=== PATIENT | male | born 1950 | race Caucasian/White ===

== ENCOUNTER 2019-02-19 13:54 | Inpatient (IN) | payer BC ==
[~2019-02-19] VITALS: Ht 182.9 cm; Wt 108.0 kg
--- NOTE | 2019-02-19 14:02 | Emergency Room Report ---
History of Present Illness General Source: Patient, EMS Present Illness HPI Patient presents via EMS after having an episode of dizziness where he felt that he was about to pass out. The weakness was associated with L sided abdominal pain 5/10, constant, aching. He claims he has had some increased weakness in his legs. Yesterday he was walking his dog and fell. He was unable to get up because of leg weakness. People helped him to get up and then EMS went to assess him. He refused transport to hospital yesterday. He states he has chronic swelling of his right knee that is worsened recently. Also he has swelling in his legs with edema and venous disease there. He denies chest pain, palpitations, fevers, chills, nausea, vomiting, diarrhea. When he was weak he felt more weakness on the left side of his body. He denies having unilateral weakness at this time. He self catheterize for urine. Last catheterization was yesterday. He feels fulness in his bladder. He is followed by urologist. He said 4 operations for urethral strictures. This began after passing a large stone. He denies dysuria. There is no hematuria. When he passes the catheter he feels like he has to break up further strictures. He is not taking any Flomax. He denies previous cardiac problems or arrhythmias. 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 Reviewed Nursing Documentation: PMH: Agreed; PSxH: Agreed Review of Systems All Other Systems: negative except mentioned in HPI Physical Exam Vital Signs Date Time Temp Pulse Resp B/P (MAP) Pulse Ox O2 Delivery O2 Flow Rate FiO2 02/19/19 13:57 98.2 100 18 160/80 (106) 97 Room Air Sp02 EP Interpretation: reviewed, normal General Appearance: well appearing, GCS 15, non-toxic Head: normocephalic, atraumatic Eyes: bilateral eye normal inspection, bilateral eye PERRL, bilateral eye EOMI ENT: moist mucus membranes Neck: supple Respiratory: lungs clear, normal breath sounds Cardiovascular #1: tachycardia, extra beats, edema Cardiovascular #2: 2+ radial (R) Gastrointestinal: normal inspection, normal bowel sounds, no mass, non- distended, no guarding, no rebound, tenderness - Left mid abdomen Genitourinary: no CVA tenderness Musculoskeletal: no calf tenderness, Javier's Sign negative, swelling - Right knee, other - Bunion deformity bilaterally Neurologic: alert, oriented x3, fulfillment representative III-XII nml as tested, motor strength/tone normal, DTRs symmetric, sensory intact, cerebellar normal, normal gait, grossly normal Psychiatric: mood/affect normal Skin: warm/dry, other - Venous disease lower extremities Medical Decision Making Diagnostic Impression: Primary Impression: Near syncope Additional Impressions: Weakness Urinary retention Frequent PVCs Left sided abdominal pain Arrhythmia Qualified Codes: I49.8 - Other specified cardiac arrhythmias ER Course Patient presents with near syncope with episode of weakness yesterday. Differential includes acute myocardial infarction, arrhythmia, electrolyte abnormality, DVT right leg, occult infection, stroke, pulmonary embolus amongst others. Patient will be evaluated with EKG, chest x-ray and labs. Orthostatics will be performed. The etiology of the left-sided abdominal pain is unclear. Differential includes renal stone, pyelonephritis, constipation, diverticulitis amongst others. The patient declines Tylenol for treatment of this pain at this time. Abdominal exam is nonsurgical. EKG with NSR and frequent PVCs. Chest x-ray unremarkable with normal heart size. Labs with normal white count however possible left shift. CMP with mild hypo-kalemia. Sedimentation rate elevated. Negative troponin. Urinalysis post attempts at catheterization with mild hematuria. No evidence of UTI. Attempt pass langley - unable. Call Dr. Castano. States unable to come in at this time but will consult. Patient able to urinate. Still with tachycardia but less PVCs. Admit telemetry Dr. Bowens. Evaluated in the emergency department by production service manager. Patient given Tylenol for the left-sided abdominal pain. Etiology unclear. Laboratory Tests Test 02/19/19 14:45 02/19/19 17:20 White Blood Count 9.1 K/UL (4.8-10.8) Red Blood Count 4.25 M/UL (4.70-6.10) L Hemoglobin 14.8 G/DL (14.2-18.0) Hematocrit 41.5 % (42.0-52.0) L Mean Corpuscular Volume 98 FL (80-99) Mean Corpuscular Hemoglobin 34.9 PG (27.0-31.0) H Mean Corpuscular Hemoglobin Concent 35.7 G/DL (32.0-36.0) Red Cell Distribution Width 11.7 % (11.6-14.8) Platelet Count 115 K/UL (150-450) L Mean Platelet Volume 6.3 FL (6.5-10.1) L Neutrophils (%) (Auto) 84.2 % (45.0-75.0) H Lymphocytes (%) (Auto) 9.9 % (20.0-45.0) L Monocytes (%) (Auto) 5.0 % (1.0-10.0) Eosinophils (%) (Auto) 0.2 % (0.0-3.0) Basophils (%) (Auto) 0.7 % (0.0-2.0) Erythrocyte Sedimentation Rate 33 MM/HR (0-20) H Prothrombin Time 10.5 SEC (9.30-11.50) Prothrombin Time INR 1.0 (0.9-1.1) PTT 24 SEC (23-33) Sodium Level 143 MMOL/L (136-145) Potassium Level 3.2 MMOL/L (3.5-5.1) L Chloride Level 103 MMOL/L (98-107) Carbon Dioxide Level 22 MMOL/L (21-32) Anion Gap 18 mmol/L (5-15) H Blood Urea Nitrogen 16 mg/dL (7-18) Creatinine 1.0 MG/DL (0.55-1.30) Estimate Glomerular Filtration Rate > 60 mL/min (>60) Glucose Level 104 MG/DL (74-106) Uric Acid 4.5 MG/DL (2.6-7.2) Calcium Level 9.2 MG/DL (8.5-10.1) Total Bilirubin 1.2 MG/DL (0.2-1.0) H Direct Bilirubin 0.3 MG/DL (0.0-0.3) Aspartate Amino Transferase (AST) 43 U/L (15-37) H Alanine Aminotransferase (ALT) 37 U/L (12-78) Alkaline Phosphatase 63 U/L (46-116) Total Creatine Kinase 665 U/L (26-308) H Troponin I 0.000 ng/mL (0.000-0.056) Pro-B-Type Natriuretic Peptide 129 pg/mL (0-125) H Total Protein 7.6 G/DL (6.4-8.2) Albumin 4.2 G/DL (3.4-5.0) Globulin 3.4 g/dL Albumin/Globulin Ratio 1.2 (1.0-2.7) Urine Color Yellow Urine Appearance Clear Urine pH 5 (4.5-8.0) Urine Specific [place] 1.020 (1.005-1.035) Urine Protein 1+ (NEGATIVE) H Urine Glucose (UA) Negative (NEGATIVE) Urine Ketones 2+ (NEGATIVE) H Urine Blood 5+ (NEGATIVE) H Urine Nitrite Negative (NEGATIVE) Urine Bilirubin Negative (NEGATIVE) Urine Urobilinogen Normal MG/DL (0.0-1.0) Urine Leukocyte Esterase Negative (NEGATIVE) Urine RBC 60-80 /HPF (0 - 0) H Urine WBC 0-2 /HPF (0 - 0) Urine Squamous Epithelial Cells None /LPF (NONE/OCC) Urine Bacteria Occasional /HPF (NONE) EKG Diagnostic Results Rate: normal Rhythm: NSR ST Segments: no acute changes - frequent PVCs with couplets Rhythm Strip Diag. Results EP Interpretation: yes Rhythm: NSR, other - PVCs rate 105 Chest X-Ray Diagnostic Results Chest X-Ray Diagnostic Results : Chest X-Ray Ordered: Yes # of Views/Limited/Complete: 1 View Indication: Other EP Interpretation: Yes Interpretation: no consolidation, no effusion, no pneumothorax Impression: No acute disease Electronically Signed by: Electronically signed by Royal Eason MD Last Vital Signs Date Time Temp Pulse Resp B/P (MAP) Pulse Ox O2 Delivery O2 Flow Rate FiO2 02/20/19 00:00 98.8 96 18 153/85 (107) 95 02/19/19 20:30 Room Air Status: improved Disposition: ADMITTED INPATIENT Condition: Serious Royal Eason MD Feb 19, 2019 14:02
[2019-02-19 14:07] VITALS: BP 156/73
--- NOTE | 2019-02-19 14:07 | NUR ---
ED Nurse Note: PT FROM HOME CAME IN DUE TO WEAKNESS AND DIZINESS THAT STARTED YESTERDAY WITH NEAR SYNCOPE EPISODE. DENIES HEAD INJURY. ALSO C/O LEFT FLANK PAIN. NOTED SWELLING OF FEET AND HX OF GOUT. PT IS AAO X4, AMBULATORY WITH NON LABORED BREATHING.
--- NOTE | 2019-02-19 15:09 | Diagnostic Imaging Report ---
EXAM: XR Chest, 1 View CLINICAL HISTORY: SYNCOPE TECHNIQUE: Frontal view of the chest. COMPARISON: No relevant prior studies available. FINDINGS: Lungs: Slightly limited due to underpenetrated technique. No consolidation. Pleural space: Unremarkable. No pneumothorax. Heart: Unremarkable. No cardiomegaly. Mediastinum: Unremarkable. Bones/joints: Unremarkable. IMPRESSION: No evidence of acute pulmonary disease
[2019-02-19 15:10] LABS: BASOPHILS % (AUTO) 0.7 % (0.0-2.0); EOSINOPHILS % (AUTO) 0.2 % (0.0-3.0); HEMATOCRIT 41.5 % (42.0-52.0); HEMOGLOBIN 14.8 G/DL (14.2-18.0); LYMPHOCYTES % (AUTO) 9.9 % (20.0-45.0); MEAN CORPUSCULAR VOLUME 98 FL (80-99); NEUTROPHILS % (AUTO) 84.2 % (45.0-75.0); PLATELET COUNT 115 K/UL (150-450); RED BLOOD COUNT 4.25 M/UL (4.70-6.10); RED CELL DISTRIBUTION WIDTH 11.7 % (11.6-14.8); WHITE BLOOD COUNT 9.1 K/UL (4.8-10.8)
--- NOTE | 2019-02-19 15:30 | NUR ---
ED Nurse Note: 2 RNS TRIED TO INSERT A REYES CATHETER. UNABLE TO INSERT AND WITH RESISTANCE. DR ELLSWORTH STILL WANTS A REYES CATH INSERTED.
[2019-02-19 15:48] LABS: ANION GAP 18 mmol/L (5-15); BLOOD UREA NITROGEN 16 mg/dL (7-18); CALCIUM 9.2 MG/DL (8.5-10.1); CARBON DIOXIDE 22 MMOL/L (21-32); CHLORIDE 103 MMOL/L (98-107); POTASSIUM 3.2 MMOL/L (3.5-5.1); SODIUM 143 MMOL/L (136-145)
[2019-02-19 15:59] LABS: ALANINE AMINOTRANSFERASE 37 U/L (12-78); ALBUMIN 4.2 G/DL (3.4-5.0); ALBUMIN/GLOBULIN RATIO 1.2 (1.0-2.7); ALKALINE PHOSPHATASE 63 U/L (46-116); ASPARTATE AMINO TRANSFERASE 43 U/L (15-37); BILIRUBIN,TOTAL 1.2 MG/DL (0.2-1.0); CREATINE KINASE 665 U/L (26-308)
[2019-02-19 16:00] LABS: BILIRUBIN,DIRECT 0.3 MG/DL (0.0-0.3)
[2019-02-19] MEDS ORDERED: Lidocaine HCl 2% Jelly 6ml Tube TOPIC ONE ×2 (16:00→16:30)
[2019-02-19 16:10] VITALS: BP 157/87
[2019-02-19 18:00] VITALS: BP 146/83
[2019-02-19 18:26] LABS: APPEARANCE,URINE CLEAR; BILIRUBIN, URINE NEGATIVE (NEGATIVE); GLUCOSE, URINE (UA) NEGATIVE (NEGATIVE); KETONES,URINE 2+ (NEGATIVE); LEUKOCYTE ESTERASE ,URINE NEGATIVE (NEGATIVE); NITRITE,URINE NEGATIVE (NEGATIVE); PH,URINE 5 (4.5-8.0); PROTEIN,URINE 1+ (NEGATIVE); UROBILINOGEN,URINE NORMAL MG/DL (0.0-1.0)
[2019-02-19 18:27] LABS: COLOR,URINE YELLOW
--- NOTE | 2019-02-19 19:14 | NUR ---
HAND-OFF: Report given to GOGO CHAUHAN.
--- NOTE | 2019-02-19 19:15 | NUR ---
ED Nurse Note: Patient relaxing with no complaints. patient on phone with family members, speaking without difficulty. vital signs stable.
--- NOTE | 2019-02-19 20:01 | NUR ---
ED Nurse Note: Report called in to Hao CHAUHAN, no push back.
--- NOTE | 2019-02-19 20:04 | Cardiac Electrophysiology PN ---
Subjective Subjective [id number] Objective Last 24 Hour Vital Signs Date Time Temp Pulse Resp B/P (MAP) Pulse Ox O2 Delivery O2 Flow Rate FiO2 02/19/19 18:00 98.2 103 18 146/83 100 Room Air 02/19/19 16:10 98.5 82 15 157/87 100 Room Air 02/19/19 14:07 100 18 Room Air 02/19/19 14:07 98.4 77 15 156/73 98 Room Air 02/19/19 13:57 98.2 100 18 160/80 (106) 97 Room Air Laboratory Tests Test 02/19/19 14:45 02/19/19 17:20 White Blood Count 9.1 K/UL (4.8-10.8) Red Blood Count 4.25 M/UL (4.70-6.10) L Hemoglobin 14.8 G/DL (14.2-18.0) Hematocrit 41.5 % (42.0-52.0) L Mean Corpuscular Volume 98 FL (80-99) Mean Corpuscular Hemoglobin 34.9 PG (27.0-31.0) H Mean Corpuscular Hemoglobin Concent 35.7 G/DL (32.0-36.0) Red Cell Distribution Width 11.7 % (11.6-14.8) Platelet Count 115 K/UL (150-450) L Mean Platelet Volume 6.3 FL (6.5-10.1) L Neutrophils (%) (Auto) 84.2 % (45.0-75.0) H Lymphocytes (%) (Auto) 9.9 % (20.0-45.0) L Monocytes (%) (Auto) 5.0 % (1.0-10.0) Eosinophils (%) (Auto) 0.2 % (0.0-3.0) Basophils (%) (Auto) 0.7 % (0.0-2.0) Erythrocyte Sedimentation Rate 33 MM/HR (0-20) H Prothrombin Time 10.5 SEC (9.30-11.50) Prothromb Time International Ratio 1.0 (0.9-1.1) Activated Partial Thromboplast Time 24 SEC (23-33) Sodium Level 143 MMOL/L (136-145) Potassium Level 3.2 MMOL/L (3.5-5.1) L Chloride Level 103 MMOL/L (98-107) Carbon Dioxide Level 22 MMOL/L (21-32) Anion Gap 18 mmol/L (5-15) H Blood Urea Nitrogen 16 mg/dL (7-18) Creatinine 1.0 MG/DL (0.55-1.30) Estimat Glomerular Filtration Rate > 60 mL/min (>60) Glucose Level 104 MG/DL (74-106) Uric Acid 4.5 MG/DL (2.6-7.2) Calcium Level 9.2 MG/DL (8.5-10.1) Total Bilirubin 1.2 MG/DL (0.2-1.0) H Direct Bilirubin 0.3 MG/DL (0.0-0.3) Aspartate Amino Transf (AST/SGOT) 43 U/L (15-37) H Alanine Aminotransferase (ALT/SGPT) 37 U/L (12-78) Alkaline Phosphatase 63 U/L (46-116) Total Creatine Kinase 665 U/L (26-308) H Troponin I 0.000 ng/mL (0.000-0.056) Pro-B-Type Natriuretic Peptide 129 pg/mL (0-125) H Total Protein 7.6 G/DL (6.4-8.2) Albumin 4.2 G/DL (3.4-5.0) Globulin 3.4 g/dL Albumin/Globulin Ratio 1.2 (1.0-2.7) Urine Color Yellow Urine Appearance Clear Urine pH 5 (4.5-8.0) Urine Specific [place] 1.020 (1.005-1.035) Urine Protein 1+ (NEGATIVE) H Urine Glucose (UA) Negative (NEGATIVE) Urine Ketones 2+ (NEGATIVE) H Urine Blood 5+ (NEGATIVE) H Urine Nitrite Negative (NEGATIVE) Urine Bilirubin Negative (NEGATIVE) Urine Urobilinogen Normal MG/DL (0.0-1.0) Urine Leukocyte Esterase Negative (NEGATIVE) Urine RBC 60-80 /HPF (0 - 0) H Urine WBC 0-2 /HPF (0 - 0) Urine Squamous Epithelial Cells None /LPF (NONE/OCC) Urine Bacteria Occasional /HPF (NONE) Todd Crane MD Feb 19, 2019 20:04
--- NOTE | 2019-02-19 20:15 | NUR ---
ED Nurse Note: Patient resting with no complaints, awaiting departure to floor.
[2019-02-19 20:30] VITALS: BP 153/76
--- NOTE | 2019-02-19 20:30 | NUR ---
ED Nurse Note: Patient medicated for pain prior to departure to floor. Patient accompanied by RN and ERtech to floor without incident.
--- NOTE | 2019-02-19 20:40 | NUR ---
NURSE NOTES: Received pt from ER. Pt transported via gurney onto floor. potline monitor placed on pt and vitals taken. Pt is awake tolerating room air in no distress. Belongings verified with ER nurse and pt at bedside. IV site intact. Will call Dr. Bowens for admission orders.
[2019-02-19] MEDS: Tamsulosin 0.4mg cap ORAL SCH (23:36)
[2019-02-19] MEDS: Acetaminophen 500mg (ES) tab ORAL PRN (23:38)
[2019-02-20] VITALS: BP 153/85
[2019-02-20 04:00] VITALS: BP 143/89
--- NOTE | 2019-02-20 04:01 | Consultation ---
DATE OF CONSULTATION: 02/19/2019 CONSULTING PHYSICIAN: Todd Crane M.D. REFERRING PHYSICIAN: Tj Bowens M.D. REASON FOR CONSULTATION: Presyncope and frequent PVCs. HISTORY OF PRESENT ILLNESS: The patient is a very pleasant 68-year-old retired gentleman with a history of hypertension, presented to the emergency room after several episodes of dizziness and presyncope. The patient also has noticed increased weakness in the legs yesterday while he was walking his dog and fell twice and states he was not able to get up because of weakness. The patient also noticed to have increased swelling in his legs. The paramedics assessed him, but refused to transfer to the hospital yesterday. However, because of his syncopal episodes, he came to the emergency room where he was found to have frequent premature ventricular contractions in the bigeminal pattern. His blood pressure in the ER was also 160/80 with a pulse of 100 and respiration of 18. REVIEW OF SYSTEMS: Review of systems was negative other than what was mentioned in the history of present illness. PAST MEDICAL HISTORY: As mentioned above. FAMILY HISTORY: Noncontributory. SOCIAL HISTORY: He lives at home. Does not smoke. Drinks alcohol only socially. PHYSICAL EXAMINATION: VITAL SIGNS: Blood pressure 160/80, pulse is 100, respirations 18, and temperature 98.2. HEENT: Head and neck showed no jugular venous distention. LUNGS: Clear. CARDIOVASCULAR: Shows regular S1 and S2 with no gallop. ABDOMEN: Soft. EXTREMITIES: 1+ pitting edema. He is status post right knee surgery. LABORATORY DATA: His labs show white count of 9.1, hemoglobin of 14.0, hematocrit of 41, and platelet count is 115,000. Sodium 142, potassium 3.2, BUN of 16, creatinine of 1, and glucose of 104. Troponin is negative. BNP is 129. ASSESSMENT AND PLAN: 1. Presyncope in a patient with frequent PVCs. We will completely rule out myocardial infarction protocol and get an echocardiogram to evaluate for ejection fraction and wall motion abnormality. If he rules out, he will need a stress test for further evaluation of his premature ventricular contractions. 2. Frequent bigeminal premature ventricular contractions. Again in view of his presyncope, he was scheduled for a stress test. He may need electrophysiology study if the stress test showed no evidence of ischemia, ventricular tachycardia and premature ventricular contractions frequency. 3. Hypertension. Resume his antihypertensive medication at home. the patient on lisinopril 10 mg daily for blood pressure management. 4. Urinary retention, will be evaluated by urologist. Thank you very much, Dr. Bowens, for allowing me to participate in the care of this patient. Please do not hesitate to contact me for any questions regarding my evaluation. Sincerely, Todd Crane M.D. DR: FADI JOB#: [id number] CC:
--- NOTE | 2019-02-20 07:30 | NUR ---
NURSE NOTES: PATIENT A/A/OX4, ABLE TO AMBULATE TO THE BATHROOM WITH A CANE AND WITH STAFF ASSISTANCE. ABLE TO MAKE THINGS KNOWN. NO ACUTE CARDIO-RESP DISTRESS NOTED. NO C/O PAIN/DISCOMFORT NOTED. PERSONAL BELONGINGS REVIEWED. KEEP BED IN THE LOWEST POSITION. SIDERAILS ARE UP X3. BED ALARM ACTIVATED. KEEP BED IN LOCK MODE @ ALL TIMES. WILL CONT TO MONITOR.
--- NOTE | 2019-02-20 07:35 | NUR ---
HAND-OFF: Report given to TIEN Acosta. Endorsed plan of care.
[2019-02-20 08:00] VITALS: BP 140/88
[2019-02-20] MEDS: Lisinopril 10mg tab ORAL SCH (08:44)
[2019-02-20] MEDS ORDERED: NORVASC10 MG ORAL (08:49)
[2019-02-20] MEDS ORDERED: HYDROCHLOROTH12.5 M2 ORAL (08:49)
[2019-02-20] MEDS ORDERED: ALLOPURINOL300 M1 ORAL (08:49)
--- NOTE | 2019-02-20 10:58 | NUR ---
NURSE NOTES: medrec reconciled.
[2019-02-20 12:00] VITALS: BP 139/69
--- NOTE | 2019-02-20 14:03 | Cardiology Report ---
APPROVED REPORT EKG Measurement Heart [id number] Sinus tachycardia with frequent premature ventricular complexes Nonspecific ST and T wave abnormality Abnormal ECG
[2019-02-20] MEDS: Acetaminophen 500mg (ES) tab ORAL PRN (15:03)
[2019-02-20 16:00] VITALS: BP 121/74
--- NOTE | 2019-02-20 16:28 | Cardiac Electrophysiology PN ---
Assessment/Plan Assessment/Plan 1. Presyncope in a patient with frequent PVCs. Ruled out myocardial infarction and echo EF 55% Stress test in am pending. 2. Frequent bigeminal premature ventricular contractions. Again in view of his presyncope, he was scheduled for a stress test. He may need electrophysiology study if the stress test showed no evidence of ischemia, 3. Hypertension. On lisinopril 10 mg daily. Resume Norvasc 5 daily 4. Urinary retention, will be evaluated by urologist. SAIRA RN Subjective Subjective Remained in SR with frequent PVCs Objective Last 24 Hour Vital Signs Date Time Temp Pulse Resp B/P (MAP) Pulse Ox O2 Delivery O2 Flow Rate FiO2 02/20/19 15:33 98.4 02/20/19 12:00 98.4 96 22 139/69 (92) 96 02/20/19 08:44 140/88 02/20/19 08:00 98.4 98 23 140/88 (105) 94 02/20/19 04:00 94 02/20/19 04:00 97.8 94 18 143/89 (107) 96 02/20/19 00:00 96 02/20/19 00:00 98.8 96 18 153/85 (107) 95 02/19/19 20:50 Room Air 02/19/19 20:30 98.2 109 16 153/76 (101) 96 02/19/19 20:30 98.2 103 18 146/83 100 Room Air 02/19/19 18:00 98.2 103 18 146/83 100 Room Air Intake and Output 02/19/19 02/20/19 19:00 07:00 Output Total 800 ml Balance -800 ml Output Urine Total 800 ml # Voids 1 Laboratory Tests Test 02/19/19 17:20 02/20/19 06:50 Urine Color Yellow Urine Appearance Clear Urine pH 5 (4.5-8.0) Urine Specific [place] 1.020 (1.005-1.035) Urine Protein 1+ (NEGATIVE) H Urine Glucose (UA) Negative (NEGATIVE) Urine Ketones 2+ (NEGATIVE) H Urine Blood 5+ (NEGATIVE) H Urine Nitrite Negative (NEGATIVE) Urine Bilirubin Negative (NEGATIVE) Urine Urobilinogen Normal MG/DL (0.0-1.0) Urine Leukocyte Esterase Negative (NEGATIVE) Urine RBC 60-80 /HPF (0 - 0) H Urine WBC 0-2 /HPF (0 - 0) Urine Squamous Epithelial Cells None /LPF (NONE/OCC) Urine Bacteria Occasional /HPF (NONE) Troponin I 0.009 ng/mL (0.000-0.056) Pro-B-Type Natriuretic Peptide 474 pg/mL (0-125) H Thyroid Stimulating Hormone (TSH) 2.776 uiU/mL (0.358-3.740) Objective HEENT: Head and neck showed no jugular venous distention. LUNGS: Clear. CARDIOVASCULAR: Shows regular S1 and S2 with no gallop. ABDOMEN: Soft. EXTREMITIES: 1+ pitting edema. He is status post right knee surgery. Todd Crane MD Feb 20, 2019 16:28
--- NOTE | 2019-02-20 16:52 | NUR ---
CASE MANAGEMENT: INITIAL REVIEW 02/19/2019 68 YO M ELAINE FROM HOME CC: DIZZINESS PMHx: WEAKNESS. INCONTINENCE. SI:SYNCOPE. ARRHYTHMIA. T 98.2 HR 100 RR 18 B/P 160/80 SATS 97% ON RA K 3.2 TBILI 1.2 AST 43 TOTAL CK 665 BNP 665 IS: TYLENOL PO X1 K DUR PO X1 PATIENT ADMITTED TO TELE 02/19/2019 @ 1532 DCP: PATIENT TO BE DISCHARGED TO HOME ONCE MEDICALLY CLEARED. PLAN OF CARE: CARDIO EVAL 02/20/2019 SI:SYNCOPE. ARRHYTHMIA. T 97.8 HR 94 RR 18 B/P 143/89 SATS 96% ON RA NO LABS TODAY IS: FLOMAX PO QHS LISINOPRIL PO QD TELE STATUS DCP: PATIENT TO BE DISCHARGED TO HOME ONCE MEDICALLY CLEARED. PLAN OF CARE: CARDIO ST W/ MEDS Addendum: 02/21/19 at 0957 by Dottie Orlando CM INTERQUAL MET
--- NOTE | 2019-02-20 19:11 | NUR ---
HAND-OFF: Report given to
--- NOTE | 2019-02-20 19:12 | NUR ---
NURSE NOTES: Receivedt from TIEN dominguez. Pt is awake and resting in bed. Will continue with plan of care.
[2019-02-20 20:00] VITALS: BP 127/66
[2019-02-20] MEDS: Tamsulosin 0.4mg cap ORAL SCH (22:23)
--- NOTE | 2019-02-20 22:45 | History and Physical Report ---
DATE OF ADMISSION: 02/19/2019 HISTORY OF PRESENT ILLNESS: The patient is here. The patient does self-catheterizations himself. He is status post multiple cystoscopy surgeries, BPH as well as history of kidney stones, status post fall comes with weakness, dizziness, presyncopal episode, lightheadedness, elevated blood pressure, and right lower extremity weakness greater than left lower extremity. It happened about a day ago. Also comes with a chronic left flank pain, which is chronic. The patient is admitted to rule out syncope and also to rule out arrhythmia. The patient is also admitted for low potassium as well as for PVCs and sinus tachycardia. PAST MEDICAL HISTORY: Gout, history of BPH, history of kidney stones, hernia, degenerative joint disease, hypertension. PAST SURGICAL HISTORY: Cystoscopy, urological surgery, hernia repair, left hip surgery, bilateral knee surgery. SOCIAL HISTORY: History of smoking. Denies history of alcohol or illicit drugs. MEDICATIONS: Amlodipine, hydrochlorothiazide. ALLERGIES: To Levaquin, sulfa, and penicillin. FAMILY HISTORY: Noncontributory. REVIEW OF SYSTEMS: HEENT: Denies headaches. RESPIRATORY: Denies shortness of breath. Denies cough. CARDIOVASCULAR: Denies chest pain. No orthopnea. GASTROINTESTINAL: Denies nausea, vomiting, or diarrhea. EXTREMITIES: Does have chronic pain syndrome. CENTRAL NERVOUS SYSTEM: Reports dizzy, presyncopal, lightheaded yesterday and weakness, right more than left and lower extremity weakness. PHYSICAL EXAMINATION: VITAL SIGNS: Temperature is 98.4, pulse is 98, blood pressure 140/88. HEENT: PERRLA. NECK: Supple. No lymphadenopathy. CHEST: Clear to auscultation. CARDIOVASCULAR: Regular rate and rhythm. No murmurs or extra sounds. GASTROINTESTINAL: Soft, nontender, nondistended. No organomegaly. EXTREMITIES: No edema. Moves all four extremities. NEUROLOGIC: Sensory is intact to light touch. Reflexes equal on both sides. Moves all four extremities. LABORATORY DATA: WBC of 9.1, hemoglobin of 14.8, platelets 115. Sodium 143, potassium 3.2, BUN of 16, creatinine of 1, glucose of 104. ASSESSMENT AND PLAN: Electrolyte imbalance, arrhythmia, presyncope. We need to find out when the patient is having a presyncopal episode does have PVC and sinus tachycardia as well. I have asked Dr. Crane, Dr. Winn, Dr. Linares, Dr. Castano see the patient for the treatment of the urological issue as well as for syncopal workup as well as for hypokalemia treatment. Tj Bowens M.D. DR: JAME JOB#: [id number] CC:
--- NOTE | 2019-02-20 23:46 | Consultation ---
History of Present Illness General Date patient seen: Feb 20, 2019 Chief Complaint: Dizziness Present Illness HPI Paddy Abad is a 68-year-old retired gentleman with a history of hypertension, presented to the emergency room after several episodes of dizziness and presyncope. The patient also has noticed increased weakness in the legs yesterday while he was walking his dog and fell twice and states he was not able to get up because of weakness. The patient also noticed to have increased swelling in his legs. The paramedics assessed him, but refused to transfer to the hospital yesterday. However, because of his syncopal episodes, he came to the emergency room where he was found to have frequent premature ventricular contractions in the bigeminal pattern. His blood pressure in the ER was also 160/80 with a pulse of 100 and respiration of 18. Allergies: Coded Allergies: SULFA (SULFONAMIDE ANTIBIOTICS) (Verified Allergy, Unknown, 02/19/19) LEVOFLOXACIN (Unverified Adverse Reaction, Intermediate, 02/20/19) Pt stated he experienced painful ankles and kidney pain when he last took Levaquin. Medication History Scheduled Allopurinol* (Allopurinol*), 300 MG ORAL DAILY, (Reported) Amlodipine Besylate (Norvasc), 10 MG ORAL DAILY, (Reported) Hydrochlorothiazide* (Hydrochlorothiazide*), 7.5 MG ORAL DAILY, (Reported) Patient History Healthcare decision maker Resuscitation status Full Code Advanced Directive on File No Blood Transfusions Physical Exam Last 24 Hour Vital Signs Date Time Temp Pulse Resp B/P (MAP) Pulse Ox O2 Delivery O2 Flow Rate FiO2 02/20/19 16:00 97.5 96 22 121/74 (90) 97 02/20/19 16:00 87 02/20/19 15:33 98.4 02/20/19 12:00 98.4 96 22 139/69 (92) 96 02/20/19 12:00 88 02/20/19 09:00 Room Air 02/20/19 08:44 140/88 02/20/19 08:00 92 02/20/19 08:00 98.4 98 23 140/88 (105) 94 02/20/19 04:00 94 02/20/19 04:00 97.8 94 18 143/89 (107) 96 02/20/19 00:00 96 6/16/19 00:00 98.8 96 18 153/85 (107) 95 Intake and Output 02/19/19 02/20/19 18:59 06:59 Output Total 800 ml Balance -800 ml Output Urine Total 800 ml # Voids 1 Laboratory Tests Test 02/20/19 06:50 Troponin I 0.009 ng/mL (0.000-0.056) Pro-B-Type Natriuretic Peptide 474 pg/mL (0-125) H Thyroid Stimulating Hormone (TSH) 2.776 uiU/mL (0.358-3.740) Height (Feet): 6 Height (Inches): 0.00 Weight (Pounds): 238 Medications Current Medications Medications (Trade) Dose Ordered Sig/William Route PRN Reason Start Time Stop Time Status Last Admin Dose Admin Acetaminophen (Tylenol) 500 mg Q4H PRN ORAL Mild Pain/Temp > 100.5 02/19/19 23:00 03/21/19 22:59 02/20/19 15:03 Clonidine HCl (Catapres Tab) 0.1 mg Q2H PRN ORAL sbp>170 02/19/19 20:15 03/21/19 20:14 Lisinopril (Zestril) 10 mg DAILY ORAL 02/20/19 09:00 03/22/19 08:59 02/20/19 08:44 Regadenoson (Lexiscan) 0.4 mg ONCE PRN IV stress test 02/21/19 08:00 02/21/19 18:00 Tamsulosin HCl (Flomax) 0.4 mg BEDTIME ORAL 02/19/19 23:00 03/21/19 22:59 02/20/19 22:23 Margarita Dumont N.P. Feb 20, 2019 23:46
[2019-02-21] VITALS: BP 127/69
[2019-02-21 04:00] VITALS: BP 113/74
[2019-02-21] MEDS: Acetaminophen 500mg (ES) tab ORAL PRN (04:08)
--- NOTE | 2019-02-21 05:03 | Cardiac Electrophysiology PN ---
Assessment/Plan Assessment/Plan 1. Presyncope in a patient with frequent PVCs. Ruled out myocardial infarction and echo EF 55% Stress test today is pending. 2. Frequent bigeminal premature ventricular contractions. Again in view of his presyncope, he was scheduled for a stress test. He may need electrophysiology study if the stress test showed no evidence of ischemia, 3. Hypertension. On lisinopril 10 mg daily and Norvasc 5 daily 4. Urinary retention, on Flomax DW RN Subjective Subjective Remained in SR . No CP or SOB Objective Last 24 Hour Vital Signs Date Time Temp Pulse Resp B/P (MAP) Pulse Ox O2 Delivery O2 Flow Rate FiO2 02/21/19 00:00 98.4 92 18 127/69 (88) 97 02/21/19 00:00 92 02/20/19 21:00 Room Air 02/20/19 20:00 99.1 107 20 127/66 (86) 96 02/20/19 20:00 107 02/20/19 16:00 97.5 96 22 121/74 (90) 97 02/20/19 16:00 87 02/20/19 15:33 98.4 02/20/19 12:00 98.4 96 22 139/69 (92) 96 02/20/19 12:00 88 02/20/19 09:00 Room Air 02/20/19 08:44 140/88 02/20/19 08:00 92 02/20/19 08:00 98.4 98 23 140/88 (105) 94 Intake and Output 02/20/19 02/21/19 18:59 06:59 Intake Total 360 ml Output Total 300 ml 550 ml Balance 60 ml -550 ml Intake Oral 360 ml Output Urine Total 300 ml 550 ml Laboratory Tests Test 02/20/19 06:50 Troponin I 0.009 ng/mL (0.000-0.056) Pro-B-Type Natriuretic Peptide 474 pg/mL (0-125) H Thyroid Stimulating Hormone (TSH) 2.776 uiU/mL (0.358-3.740) Objective HEENT: Head and neck showed no jugular venous distention. LUNGS: Clear. CARDIOVASCULAR: Regular S1 and S2 with no gallop. ABDOMEN: Soft. EXTREMITIES: 1+ pitting edema. He is status post right knee surgery. Todd Crane MD Feb 21, 2019 05:03
[2019-02-21 08:00] VITALS: BP 141/60
[2019-02-21] MEDS ORDERED: Lexiscan 0.4mg/5ml syringe IV PRN ×2 (08:00)
--- NOTE | 2019-02-21 08:00 | NUR ---
NURSE NOTES: Received report from TIEN Rosario. Pt in bed, awake, talkative, no complaints of pain, no apparent distress noted, bed in lowest position, call light within reach.
[2019-02-21] MEDS: Lisinopril 10mg tab ORAL SCH (08:43)
--- NOTE | 2019-02-21 10:54 | NUR ---
*-* NO INSURANCE INFORMATION IN THE BAR UNABLE TO SENF CLINICALS OR REVIEWS *-*
--- NOTE | 2019-02-21 11:10 | NUR ---
NURSE NOTES: Pt set up for Lexiscan Stress Test by Cardiology dept staff. Pt in bed resting, calm. RN changed batteries in Telemetry Box. 1114: Von from Cardiology interviewed pt. 1126: Dr. Feliciano discussing test with Pt, RN scanned Lexiscan medication 1127: Sukhwinder from Cardiology starting procedured, administering Lexiscan medication and flush 1128 Monitoring continuing. 1129: Test complete, pt calm, talkative, no distress noted. pt states" That's it?" 1134: RN assessed pt, pt states "My chest feels like it is beating fast, but it is not bad, I expected a whole lot worse." 1137: Pt states "No pain, I think I had more anxiety about doing the test." 1148: RN obtained vitals, see flowsheet
[2019-02-21 11:48] VITALS: BP 128/70
[2019-02-21 12:00] VITALS: BP 115/73
--- NOTE | 2019-02-21 13:38 | NUR ---
Myocardial Perfusion Scan complete.
--- NOTE | 2019-02-21 15:18 | NUR ---
NURSE NOTES: 1518: Contacted Dr. 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 Dr. Crane asked for results, but no radiology report available yet. Discussed with pt. Pt asked if he could see Dr. Crane in office for results as pt stated he needs to get home to his who has dementia. 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 1600: No radiology report available yet. Spoke with Dr. Crane about pt's situation and request to see him in the office. Dr. Crane stated that due to pt's insurance, he will not be able to see him in the office and he cannot clear the pt since the stres test is still pending. 1630: Left message in radiology requesting results for stress test. 1645: PT stated he needed to leave because his was not doing well and called him crying. Discussed with pt that Dr. Crane would not be able to see him in the office due to insurance reasons. Pt again verbalized his need to go home and he "just needs to leave then." 1655: Pt signed AMA paperwork. RN explained to him risks of leaving AMA. Pt requested medical record information. RN explained to pt no discharge information could be provided as pt is leaving AMA, but provided the pt with a Release of PHI form. 1700: Pt gave Release of PHI to RN completed, RN removed IV intact, Removed ID band, removed telemetry box 1710: Pt left AMA in private vehicle with all belongings and cane, ambulatory. Addendum: 02/21/19 at 1732 by PERICO HARRIS RN NURSE NOTES: 1710: Notified Dr. Crane of [place] 1729: Notified Dr. Bowens of A
[2019-02-21 16:00] VITALS: BP 129/56
--- NOTE | 2019-02-21 17:12 | Diagnostic Imaging Report ---
Indications: 68-year-old male with chest pain and hypertension Technique: Single day single isotope protocol utilized. Initially, resting images obtained using IV administration 11 millicuries 99M technetium Myoview. Subsequently, patient underwent lexiscan stress testing. See cardiology report for details. During Lexiscan infusion, IV administration 31.4 mCi 99 M technetium Myoview. SPECT and planar images obtained. SPECT images gated to 8 phases of the cardiac cycle were also obtained, and reformatted into cine images for evaluation of ejection fraction. Comparison: none Findings: Zero absence of symptoms during infusion is not described on the cardiology report. Per cardiology report, resting EKG demonstrates normal sinus rhythm. Presence or absence of ST changes is not described on the cardiology report. Imaging demonstrates normal poststress perfusion, no fixed nor reversible post stress perfusion defects. Normal cardiac chamber size. Calculated post stress ejection fraction 54%. No focal wall motion abnormality Impression: Nonischemic clinical response to pharmacologic stress, per cardiology report Nonischemic electrocardiographic response to pharmacologic stress, per cardiology report No imaging findings to suggest ischemia, at level of stress achieved. Calculated post stress ejection fraction 54%
--- NOTE | 2019-02-22 05:01 | Consultation ---
Consult Note Consult Note Hematology / Oncology Consultation Late Entry Date of consultation 02/21/2019 History of Present Illness This is a 68 year old male Patient presents via EMS after having an episode of dizziness where he felt that he was about to pass out. The weakness was associated with L sided abdominal pain 5/10, constant, aching. He claims he has had some increased weakness in his legs. He states he has chronic swelling of his right knee that is worsened recently. Also he has swelling in his legs with edema and venous disease there. He denies chest pain, palpitations, fevers , chills, nausea, vomiting, diarrhea. He self catheterize for urine. Last catheterization was yesterday. He feels fulness in his bladder. He is followed by urologist. He said 4 operations for urethral strictures. This began after passing a large stone. He denies dysuria and hematuria. When he passes the catheter he feels like he has to break up further strictures. We were consulted for thrombocytopenia and for further evaluation. Patient History Past Medical History: Gout, history of BPH, history of kidney stones, hernia, degenerative joint disease, hypertension. Past Surgical History: Operations for urethral strictures.Cy stoscopy, urological surgery, hernia repair, left hip surgery, bilateral knee surgery. Social History Narrative History of Tobacco use, no alcohol and no illicit drug use. 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 Allergies: Coded Allergies: SULFA (SULFONAMIDE ANTIBIOTICS) (Verified Allergy, Unknown, 02/19/19) Review of Systems All Other Systems: negative except mentioned in HPI Physical Exam General Appearance: well appearing, no acute distress Head: normocephalic, atraumatic Eyes: bilateral eye normal inspection, bilateral eye PERRL, bilateral eye EOMI ENT: moist mucus membranes Neck: supple Respiratory: lungs clear, normal breath sounds Cardiovascular : regular rate Gastrointestinal: normal inspection, normal bowel sounds, no mass, non- distended, no guarding, no rebound, tenderness - Left mid abdomen Genitourinary: no CVA tenderness Musculoskeletal: swelling - Right knee, other - Bunion deformity bilaterally Neurologic: alert, oriented x3, 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 --> Consider Hep panel and HIV ordered --> Consider US abd to evaluate for cirrhosis and hsm ordered --> Peripheral smear ordered to evaluate for blasts /schistocytes --> abx and other meds have been reviewed --> ok for ppx if plt >50k w/ either heparin or lovenox --> Transfuse if Plt < 20k and fever, or if Plt < 10k without fever #. Presyncope ---> Cardio following #. Urinary retention --> Pt is following outpatient Urologist and Self cathertizes himself The timing of this note does not necessarily reflect the time of the patient was seen. GREATLY APPRECIATE CONSULTATION. Jozef Key MD Feb 22, 2019 05:01
--- NOTE | 2019-02-22 09:40 | Discharge Summary ---
Discharge Summary Discharge Summary _ DATE OF ADMISSION: 02/19/2019 DATE OF DISCHARGE: 02/21/2019 Patient left AGAINST MEDICAL ADVICE REASON FOR ADMISSION: 68 years old male with past medical history of hypertension, gout, multiply procedures for ureteral strictures, presented with episode of dizziness. Patient reported that he felt like he was about to pass out. Weakness was associated with left-sided abdominal pain , constant , aching , rating 5 out of 10 on a scale 1-10. Patient also reported increased weakness in his legs. While walking his dog the day prior to presentation to ED, he fell and was unable to get up because of the leg weakness. People helped him to get up . Paramedics came yesterday bu patient refused transfer to the hospital . Patient reported chronic swelling of the right knee , which worsened recently. He also reported venous disease in his legs with swelling . He denied chest pain, palpitations, shortness of breath, fever, chills , nausea, vomiting , diarrhea . Upon evaluation blood pressure was elevated 160/80. Laboratory work-up revealed no leukocytosis stable hemoglobin and hematocrit. Platelet count 115. Sed rate 33. Potassium 3.2. Stable renal parameters. Uric acid 4.5 9. Total bilirubin 1.2, direct bilirubin 0.3. AST 43, ALT 37. Albumin 4.2. Urinalysis revealed +2 ketones, +1 protein, occasional bacteria, no pyuria. Troponin negative. EKG revealed sinus rhythm with frequent PVC. Chest x-ray demonstrated no evidence of acute pulmonary disease. Emergency room physician was attempted to pass a Smith catheter , but was unable to do so. Urologist was called for further evaluation. Patient admitted to telemetry floor for further management. CONSULTANTS: sleep lab technician Dr. Howe neurologist Dr. Winn drug room operator/oncologist Dr. Key [facility] COURSE: Patient admitted to telemetry floor. Entry Level Sales Consultant closely followed. Serial troponin were negative. Echocardiogram demonstrated preserved ejection fraction of 50 to 55% with no evidence of wall motion abnormality. No evidence of left ventricular hypertrophy. Right ventricular systolic pressure of 14. Patient demonstrated frequent bigeminal PVC and was scheduled for a stress test. Stress test revealed nonischemic results with calculated post-rest ejection fraction 54%. Entry Level Sales Consultant recommended electrophysiology study , since stress test showed no evidence of ischemia. Blood pressure was managed with TERA inhibitor and calcium channel michael. Blood pressure stabilized. Flomax continued for urinary retention Urology consult was pendingist Hematology seen and evaluated patient. Patient with evidence of thrombocytopenia. Functional Support Analyst recommended closely monitor counts and consider hepatitis panel, HIV test, and ultrasound of the abdomen. Medication were reviewed. Peripheral smear was ordered to evaluate for blasts/ schistocytes. TSH was within normal limits. Patient decided to leave AGAINST MEDICAL ADVICE . The risks and consequences of signing AGAINST MEDICAL ADVICE were discussed with patient in detail. Patient verbalized understanding, nevertheless signed AMA form and left. FINAL DIAGNOSES: Presyncope in patient with frequent PVC Frequent bigeminal PVC Hypertension Urinary retention Thrombocytopenia I have been assigned to dictate discharge summary for this account. I was not involved in the patient's management. Bruna Mondragon NP Feb 22, 2019 09:40
--- NOTE | 2019-02-23 09:04 | NUR ---
*-* INSURANCE *-* ALL CLINICALS AND REVIEW HAVE BEEN FAXED TO: LLOYD MACKEY:DEANDRE F:[phone]
== END 2019-02-21 17:00 | disposition left against medical advice (07) | DRG 310 ==
LOC: EDBD 13:54 → EMR 14:27 → 2E 15:32 → EDBEDREQ 19:01
DX: I49.3 Ventricular premature depolarization (principal); R33.9 Retention of urine, unspecified; R55 Syncope and collapse; M10.9 Gout, unspecified; N40.0 Benign prostatic hyperplasia without lower urinary tract symptoms; I10 Essential (primary) hypertension; Z88.1 Allergy status to other antibiotic agents; Z88.0 Allergy status to penicillin; Z88.2 Allergy status to sulfonamides; R53.1 Weakness; Z91.81 History of falling
CPT/HCPCS: 36415; 71045; 78452; 80053; 81003; 82248; 82550; 83880; 84443; 84484; 84550; 85025; 85610; 85651; 85730; 93005; 93017; 93306; 99285; J2785; J8499